=== PATIENT | male | born 1965 | race Caucasian/White ===

== ENCOUNTER 2021-03-30 17:32 | Inpatient (IN) | payer OTHER, SELFPAY ==
[~2021-03-30] VITALS: Ht 175.3 cm; Wt 81.6 kg
--- NOTE | 2021-03-30 17:32 | NUR ---
HILARIO DEWEY FROM HOME TAKEN TO ER BED 4.
[2021-03-30 17:38] VITALS: BP 130/74
[2021-03-30] MEDS ORDERED: cefTRIAXone 1,000 MG in DEXT 5% MINI-BAG PLUS 50 ML IV ONE (17:55)
--- NOTE | 2021-03-30 18:06 | NUR ---
NAPHTHA WASHING SYSTEM OPERATOR AT PT BEDSIDE.
[2021-03-30] MEDS ORDERED: cefTRIAXone 1,000 MG VIAL ONE (18:13)
[2021-03-30] MEDS: NACL 0.9% 1,000 ML IV SCH ×4 (18:24→23:32)
--- NOTE | 2021-03-30 18:33 | NUR ---
GABRIELLE GUPTA SWAB DOWN TO LAB
[2021-03-30 18:37] LABS: BASOPHILS % (AUTO) 0.1 % (0.0-2.0); EOSINOPHILS # (AUTO) 0.3 K/uL (0-0.4); EOSINOPHILS % (AUTO) 1.7 % (0.0-4.0); HEMOGLOBIN 13.5 g/dL (12.0-18.0); LYMPHOCYTES # (AUTO) 1.1 K/uL (2.0-11.5); LYMPHOCYTES % (AUTO) 6.9 % (20.5-51.1); MEAN CORPUSCULAR HEMOGLOBIN 29 pg (27-31); MEAN CORPUSCULAR HGB CONC 34 g/dL (33-37); MEAN CORPUSCULAR VOLUME 86.7 fL (80-94); MONOCYTES # (AUTO) 0.5 K/uL (0.8-1.0); MONOCYTES % (AUTO) 3.4 % (1.7-9.3); NEUTROPHILS # (AUTO) 13.7 K/uL (1.8-7.7); NEUTROPHILS % (AUTO) 87.9 % (42.2-75.2); PLATELET COUNT (AUTO) 298 K/uL (140-450); RED BLOOD CELL COUNT(AUTO) 4.61 MIL/uL (4.20-6.10); RED CELL DISTRIBUTION WIDTH 13.1 % (11.6-13.7); WHITE BLOOD COUNT (AUTO) 15.6 K/uL (4.8-10.8)
[2021-03-30 19:01] LABS: ALBUMIN 2.8 g/dL (3.4-5.0); ANION GAP 12.8 (8-16); CARBON DIOXIDE 28.4 mmol/L (21-32); CREATININE 1.3 mg/dL (0.6-1.3); POTASSIUM 4.2 mmol/L (3.5-5.1); TOTAL BILIRUBIN 0.4 mg/dL (0.0-1.0)
--- NOTE | 2021-03-30 19:17 | NUR ---
Pt report given to MIKA KIRK. Transfer of care at this time.
[2021-03-30] MEDS ORDERED: INSULIN REGULAR, HUMAN 100 UNIT/ML VIAL IVP ONE (19:30)
--- NOTE | 2021-03-30 20:10 | NUR ---
Assumed patient care, here for cellulitis, awaiting MS bed. On assesment pt is aox4, c/o pain on the left middle toe. Blood sugar in the lab is 434mg/dl. Bedside POC blood glucose test done 268mg/dl, Dr. Cho informed and ordered to hold IV insulin regular 8 units at this time and just give 1L NS bolus.
[2021-03-30] MEDS ORDERED: HYDROcodone/APAP 5/325 MG 1 TAB TAB PO PRN (20:30)
[2021-03-30] MEDS ORDERED: MORPHINE SULFATE 2 MG/ML SYR IVP PRN (20:30)
--- NOTE | 2021-03-30 20:50 | NUR ---
ULTRASOUND AT BEDSIDE
--- NOTE | 2021-03-30 21:51 | NUR ---
photographic documentation of patient's wound done. Blood sugar rechecked 206mg/dl
--- NOTE | 2021-03-30 22:45 | NUR ---
WOUND CLEANED AND DRESSED.
--- NOTE | 2021-03-30 23:33 | NUR ---
REPORT GIVEN TO MARY BRENNAN.
--- NOTE | 2021-03-30 23:45 | NUR ---
PATIENT WAS BROUGHT TO [facility] UNIT FROM ER VIA GURNEY. CC: WOUND ON THE LEFT TOE NO SENSATION. DX: CELLULITIS. AAOX4. NO ACUTE DISTRESS. BREATHING EVEN UNLABORED. ON ROOM AIR. NO COMPLAINTS OF PAIN. ALL SAFETY PRECAUTIONS ARE IN PLACE. ORIENTED TO CALL LIGHT. RESTROOM, STAFF. WILL CONTINUE TO MONITOR PT.
[2021-03-31] VITALS: BP 134/77
[2021-03-31] MEDS ORDERED: NACL 0.9% 1,000 ML IV ONE (01:25)
--- NOTE | 2021-03-31 01:25 | NUR ---
BP-134/77 , DR. COREAS ORDERED BOLUS 1L NS. ORDER NOTED AND CARRIED OUT.
[2021-03-31] MEDS: NACL 0.9% 1,000 ML IV SCH ×2 (01:30→09:19)
[2021-03-31 04:00] VITALS: BP 145/86
[2021-03-31] MEDS ORDERED: DEXTROSE 50% 50 ML SYR IVP PRN ×2 (05:15→09:05)
[2021-03-31] MEDS ORDERED: INSULIN LISPRO SLIDING SCALE 100 UNITS/ML VIAL SUBQ PRN ×2 (05:15→09:05)
[2021-03-31 06:34] LABS: ANION GAP 12.4 (8-16); CARBON DIOXIDE 25.9 mmol/L (21-32); CREATININE 0.9 mg/dL (0.6-1.3); POTASSIUM 3.3 mmol/L (3.5-5.1)
[2021-03-31 06:50] LABS: BASOPHILS % (AUTO) 0.3 % (0.0-2.0); EOSINOPHILS % (AUTO) 0.4 % (0.0-4.0); HEMATOCRIT 35.5 % (36-52); LYMPHOCYTES # (AUTO) 1.3 K/uL (2.0-11.5); LYMPHOCYTES % (AUTO) 11.1 % (20.5-51.1); MEAN CORPUSCULAR HEMOGLOBIN 30 pg (27-31); MEAN CORPUSCULAR HGB CONC 34 g/dL (33-37); MEAN CORPUSCULAR VOLUME 87.5 fL (80-94); MONOCYTES # (AUTO) 1.2 K/uL (0.8-1.0); MONOCYTES % (AUTO) 9.7 % (1.7-9.3); NEUTROPHILS # (AUTO) 9.4 K/uL (1.8-7.7); NEUTROPHILS % (AUTO) 78.5 % (42.2-75.2); PLATELET COUNT (AUTO) 257 K/uL (140-450); RED BLOOD CELL COUNT(AUTO) 4.06 MIL/uL (4.20-6.10); RED CELL DISTRIBUTION WIDTH 12.9 % (11.6-13.7); WHITE BLOOD COUNT (AUTO) 11.9 K/uL (4.8-10.8)
[2021-03-31] MEDS ORDERED: BLOOD GLUCOSE MONITORING 1 DEV DEV FS SCH (07:30)
--- NOTE | 2021-03-31 07:46 | NUR ---
ENDORSED TO AM NURSE FOR CONTINUITY OF CARE. PT IS STABLE.
[2021-03-31 08:00] VITALS: BP 138/82
--- NOTE | 2021-03-31 08:59 | NUR ---
PATIENT HAS BEEN SCREENED AND CATEGORIZED HIGH NUTRITION RISK. PATIENT WILL BE SEEN WITHIN 1-2 DAYS OF ADMISSION. 03/31/21-04/01/21 RECEIVED CONSULT FOR NEWLY DIAGNOSED DIABETIC EMY DAVEY RD
[2021-03-31] MEDS ORDERED: ONDANSETRON 4 MG/2 ML VIAL IM/IVP PRN (09:05)
[2021-03-31] MEDS ORDERED: HYDROcodone/APAP 5/325 MG 1 TAB TAB PO PRN (09:05)
[2021-03-31] MEDS ORDERED: POTASSIUM CHLORIDE 10 MEQ TABER PO PRN (09:05)
[2021-03-31] MEDS ORDERED: ZOLPIDEM 5 MG TAB PO PRN (09:05)
[2021-03-31] MEDS ORDERED: DOCUSATE SODIUM 100 MG GELCAP PO PRN (09:05)
[2021-03-31] MEDS ORDERED: LORazepam 2 MG/ML VIAL IM/IVP PRN (09:05)
[2021-03-31] MEDS ORDERED: MORPHINE SULFATE 2 MG/ML SYR IVP PRN (09:05)
[2021-03-31] MEDS ORDERED: MAG SULF 2000 MG/WATER PREMIX 50 ML IV PRN (09:05)
[2021-03-31] MEDS ORDERED: ACETAMINOPHEN 325 MG TAB PO PRN (09:05)
[2021-03-31 09:51] LABS: PROTHROMBIN TIME 9.6 secs (10.8-13.4)
[2021-03-31 09:59] LABS: MAGNESIUM 1.8 mg/dL (1.8-2.4); PHOSPHORUS 3.5 mg/dL (2.5-4.9); THYROID STIMULATING HORMONE 0.56 uIU/mL (0.34-3.74)
--- NOTE | 2021-03-31 10:09 | NUR ---
PT IS AOx4, DENIES PAIN, VSS, NAD NOTED. P AWARE OF POC.
[2021-03-31] MEDS: BLOOD GLUCOSE MONITORING 1 DEV DEV FS SCH ×2 (11:46→16:32)
[2021-03-31 12:02] VITALS: BP 132/80
--- NOTE | 2021-03-31 13:53 | NUR ---
DC PLANNING: RECEIV[facility] A CALL [facility] SPOKE WITH SIDDHARTHA THAT IF PATIENT IS STABLE FOR TRANSFER, CHECKED WITH DR MULLER ORDERED PT IS STABLE. SPOKE WITH PATIENT AGREED THAT HE CAN BE TRANSFERRED. FAXED ALL PAPERWORK AFTER RENEWING SIDDHARTHA CALLED BACK AND STATED PATIENT CAN GO TO [facility] NUMBER TO THE UNIT [phone] EXT [phone] IF NOT ANSWERING CALL CHARGE NURSE EXT [phone] FOR REPORT AND WILL ASSIGN THE ROOM. [facility] WILL [facility] TRANSPORT PLATER PRODUCTION TIME 3 PM. NOTIFIED JUNE BRENNAN. RADHA TO FOLLOW
--- NOTE | 2021-03-31 14:46 | NUR ---
CALLED DANIELLA VELASQUEZ TO GIVE REPORT REGARDING PT. REPORT GIVEN TO MIKA DOYLE. QUESTIONS/CONCERNS ANSWERED. PT TO BE TRANSFERRED WITH IV AT 1500. PT AWARE OF POC. PT TO GO TO BED 11 ON [address].
[2021-03-31] MEDS ORDERED: Potassium Chloride PO (14:47)
[2021-03-31] MEDS ORDERED: ONDA2SOL45 IM/IVP (14:47)
[2021-03-31] MEDS ORDERED: DOCU-299 PO (14:47)
[2021-03-31] MEDS ORDERED: HEPA500056 SUBQ (14:47)
[2021-03-31] MEDS ORDERED: GLUC-805 FS (14:47)
[2021-03-31] MEDS ORDERED: ACET-1182 PO (14:47)
[2021-03-31] MEDS ORDERED: ROC2I IV (14:47)
[2021-03-31] MEDS ORDERED: ACET-9525 PO (14:47)
[2021-03-31] MEDS ORDERED: HUMSLIDE SUBQ (14:47)
[2021-03-31] MEDS ORDERED: ATI2I IM/IVP (14:47)
[2021-03-31] MEDS ORDERED: ZOLP5TAB1 PO (14:47)
[2021-03-31 14:57] VITALS: BP 136/86
--- NOTE | 2021-03-31 15:52 | NUR ---
03/31/2021 RD INITIAL ASSESSMENT COMPLETED PLEASE REFER TO NUTRITION ASSESSMENT UNDER CARE ACTIVITY FOR ESTIMATED NUTRITIONAL NEEDS. RD SPOKE WITH QUARTER SUPERVISOR REGARDING PT RECEIVING GLUCOSE MONITORING SUPPLIES. PER QUARTER SUPERVISOR, PT CAN RECEIVE ITEMS [facility]IA [facility]. RD WILL FOLLOW UP WITH PTS NURSE. RD TO FOLLOW-UP IN 3-5 DAYS PATIENT IS MODERATE RISK. SHIMA GRAVES RD
[2021-03-31 16:32] VITALS: BP 140/76
--- NOTE | 2021-03-31 16:42 | NUR ---
PT PICKED UP FOR TRANSPORT TO [facility]. PT IN STABLE CONDITION. VSS. QUESTIONS/CONCERNS ANSWERED.
== END 2021-03-31 17:07 | disposition short-term general hospital (02) | DRG 872 ==
LOC: MED 17:32 → MTU 20:34
DX: A41.9 Sepsis, unspecified organism (principal); L03.90 Cellulitis, unspecified; E11.65 Type 2 diabetes mellitus with hyperglycemia; E87.6 Hypokalemia; E11.42 Type 2 diabetes mellitus with diabetic polyneuropathy; E11.621 Type 2 diabetes mellitus with foot ulcer; Z20.822 Contact with and (suspected) exposure to COVID-19; F17.210 Nicotine dependence, cigarettes, uncomplicated; L97.529 Non-pressure chronic ulcer of other part of left foot with unspecified severity; M77.32 Calcaneal spur, left foot; Z89.511 Acquired absence of right leg below knee
CPT/HCPCS: 36415; 71045; 73630; 80048; 80053; 82150; 82948; 83036; 83605; 83690; 83735; 83880; 84100; 84134; 84436; 84443; 84484; 85025; 85610; 85730; 87040; 87081; 93005; 93925; 93970; 96365; 97163-GP; 97530; 99285; J0696; J1815; J7030; J7060; Q0092